=== PATIENT | female | born 1980 ===

== ENCOUNTER 2017-01-17 19:57 | Emergency (ER) | payer SELFPAY ==
[2017-01-17 19:58] VITALS: BMI 25.2
[2017-01-17 20:39] VITALS: BP 126/92; PULSE 84; RESP 16; TEMP 99.3; O2SAT 99
--- NOTE | 2017-01-17 21:08 | ED PDOC ---
HPI: Chest Pain Time Seen by Provider: 01/17/17 20:58 Chief Complaint (Nursing): Chest Pain Chief Complaint (Provider): chest pain History Per: Patient History/Exam Limitations: no limitations Onset/Duration Of Symptoms: Days (1), Waxing/Waning Current Symptoms Are (Timing): Still Present Quality: Pressure, "Pain" Exacerbating Factors: Movement, Deep Breathing Additional History Per: Patient Additional Complaint(s): 36 y/o female history of diabetes presents with intermittent chest pain x 1 day. Pain worsened by deep breaths, lifting left arm, and to touch. Denies fever, nausea/vomiting, cough, congestion, shortness of breath, palpitations, abdominal pain, leg pain/swelling, recent travel. Past Medical History Reviewed: Historical Data, Nursing Documentation, Vital Signs Vital Signs: Last Vital Signs Temp 99.3 F 01/17/17 20:34 Pulse 84 01/17/17 20:34 Resp 16 01/17/17 20:34 BP 126/92 H 01/17/17 20:34 Pulse Ox 99 01/17/17 23:23 - Medical History PMH: Diabetes - Surgical History Surgical History: Appendectomy - Family History Family History: States: Unknown Family Hx, Diabetes - Immunization History Hx Influenza Vaccination: No - Home Medications Home Medications: Ambulatory Orders Medication Instructions Recorded Metformin Hydrochloride [Metformin] 850 mg PO BID 03/13/15 Glimepiride [amaRYL] 1 tab PO DAILY 03/27/16 Ibuprofen 600 mg PO Q6H PRN #20 tab 03/27/16 Cephalexin [Keflex] 500 mg PO Q6 #28 cap 05/04/16 Sulfamethoxazole/Trimethoprim 2 each PO BID #28 tablet 05/04/16 [Bactrim 400-80 mg Tablet] Naproxen 375 mg PO Q8 PRN #21 tab 05/06/16 oxyCODONE/Acetaminophen [Percocet 1 ea PO Q6 PRN #5 tab 05/06/16 5/325 mg Tab] Ibuprofen [Motrin] 600 mg PO Q6 PRN #15 tab 06/30/16 traMADol [Ultram] 50 mg PO TID PRN #15 tab 06/30/16 Cyclobenzaprine [Cyclobenzaprine 10 mg PO Q8 PRN #12 tab 08/15/16 HCl] Ibuprofen [Motrin] 600 mg PO TID PRN #30 tab 08/15/16 traMADol [Ultram] 50 mg PO Q8 PRN #12 tab 08/15/16 - Allergies Allergies/Adverse Reactions: Allergies Allergy/AdvReac Type Severity Reaction Status Date / Time No Known Allergies Allergy Verified 01/17/17 20:34 SANDIP Risk Score for UA/NSTEMI - SANDIP Risk Score Age > 64: NO 3 or more CAD Risk Factors: NO Known CAD (Stenosis greater than 50%): NO Aspirin use in past 7 days: NO Severe Angina: NO EKG ST changes greater than 0.5mm: NO Positive Cardiac Marker: NO SANDIP Score: 0 Risk %: 5% Wells Criteria for PE - Wells Criteria for Pulmonary Embolism Clinical Signs and Symptoms of DVT: No P.E is #1 Diagnosis, or Equally Likely: No Heart Rate >100: No Immobilization at least 3 days;Surgery previous 4 weeks: No Previous, objectively diagnosed PE or DVT: No Hemoptysis: No Malignancy w/treatment within 6 months, or palliative: No Total Score: 0 Review of Systems ROS Statement: Except As Marked, All Systems Reviewed And Found Negative Cardiovascular: Positive for: Chest Pain Physical Exam - Reviewed Nursing Documentation Reviewed: Yes Vital Signs Reviewed: Yes - Physical Exam Appears: Positive for: Well, Non-toxic, No Acute Distress Head Exam: Positive for: ATRAUMATIC, NORMAL INSPECTION, NORMOCEPHALIC Skin: Positive for: Normal Color Eye Exam: Positive for: Normal appearance ENT: Positive for: Normal ENT Inspection Cardiovascular/Chest: Positive for: Regular Rate, Rhythm. Negative for: Chest Non Tender (tender to palpate left anterior chest wall; no crepitus, swelling, ecchymodid noted. tenderness reproduced upon abduction left upper extremity) Respiratory: Positive for: Normal Breath Sounds Back: Positive for: Normal Inspection Extremity: Positive for: Normal ROM Neurologic/Psych: Positive for: Alert, Oriented - Laboratory Results Result Diagrams: 01/17/17 22:43 01/17/17 22:43 - ECG ECG: Positive for: Viewed By Me (reviewed by ED attending) ECG Rhythm: Positive for: Sinus Rhythm O2 Sat by Pulse Oximetry: 99 Pulse Ox Interpretation: Normal - Radiology X-Ray: Viewed By Me X-Ray Interpretation: No Acute Disease - Progress ED Course And Treament: labs, ekg, chest xray, IV toradol, IV fluids On re-eval, patient states symptoms improved. patient educated on findings, discharged with instructions to follow up PMD 2-3 days. Return to ED for worsening/concerning symptoms. Disposition - Clinical Impression Clinical Impression: Chest pain - Patient ED Disposition Is Patient to be Admitted: No Counseled Patient/Family Regarding: Studies Performed, Diagnosis, Need For Followup - Disposition Referrals: Miriam Martinez MD [Primary Care Provider] - Disposition: Routine/Home Disposition Time: 23:29 Condition: IMPROVED Instructions: Noncardiac Chest Pain (ED) Print Language: SAO TOMEAN
[2017-01-17] MEDS ORDERED: Sodium Chloride 0.9% 1,000 ML IV STA (22:30)
[2017-01-17 22:48] LABS: BASO % 0.5 % (0.0-2.0); EOS % 0.6 % (0.0-4.0); LYMPH # 2.3 K/uL (1.0-4.3); LYMPH % 32.8 % (20.0-40.0); MEAN CELL VOLUME 82.8 fl (81.0-99.0); MEAN CORPUSCULAR HEMOGLOBIN 27.6 pg (27.0-31.0); MEAN CORPUSCULAR HGB CONC 33.3 g/dL (33.0-37.0); MEAN PLATELET VOLUME 10.1 fl (7.2-11.7); MONO # 0.5 K/uL (0.0-0.8); MONO % 7.9 % (0.0-10.0); NEUT % 58.2 % (50.0-75.0); RED CELL DISTRIBUTION WIDTH 15.1 % (11.5-14.5); WHITE BLOOD COUNT 6.9 K/uL (4.8-10.8)
[2017-01-17 22:59] LABS: ALB/GLOB RATIO 1.3 (1.0-2.1); ALKALINE PHOSPHATASE 93 U/L (38-126); ALT/SGPT 21 U/L (9-52); AST/SGOT 22 U/L (14-36); BILIRUBIN,TOTAL 0.4 mg/dl (0.2-1.3); BLOOD UREA NITROGEN 15 mg/dl (7-17); CARBON DIOXIDE 25 mmol/L (22-30); CHLORIDE 99 mmol/L (98-107); GFR AFRICAN-AMERICAN > 60; GLUCOSE,RANDOM 310 mg/dL (65-105); POTASSIUM 3.8 MMOL/L (3.6-5.0); SODIUM 139 mmol/l (132-148); TOTAL PROTEIN 7.3 G/DL (6.3-8.2)
[2017-01-18] MEDS ORDERED: Dextrose 50% SYRINGE Inj (50 ml) ONE (01:40)
--- NOTE | 2017-01-18 10:26 | RAD ---
HISTORY: chest pain COMPARISON: 10/17/2016. TECHNIQUE: Chest PA and lateral FINDINGS: LUNGS: No active pulmonary disease. PLEURA: No significant pleural effusion identified. No pneumothorax apparent. CARDIOVASCULAR: Normal. OSSEOUS STRUCTURES: No significant abnormalities. VISUALIZED UPPER ABDOMEN: Normal. OTHER FINDINGS: None. IMPRESSION: No active disease. No significant interval change compared to the prior examination(s).
== END 2017-01-17 23:29 | disposition home or self-care (01) ==
LOC: H.ER 19:57
DX: R07.9 Chest pain, unspecified (principal); E11.9 Type 2 diabetes mellitus without complications
CPT/HCPCS: 71020; 80053; 81025; 82948; 84484; 85025; 96360; 99282; J1885; J7040

== ENCOUNTER 2017-03-09 17:10 | Observation (INO) | payer MEDICAID ==
[2017-03-09] MEDS ORDERED: Sodium Chloride 0.9% 1,000 ML IV STA (22:32)
--- NOTE | 2017-03-09 23:01 | ED PDOC ---
HPI: Abdomen <KayceeSachin Abilio - Last Filed: 03/10/17 04:14> Chief Complaint (Provider): Abdominal Pain History Per: Patient History/Exam Limitations: no limitations Onset/Duration Of Symptoms: Days (X1) Current Symptoms Are (Timing): Still Present Location Of Pain/Discomfort: Periumbilical (Diffused tenderness) Associated Symptoms: Nausea, Vomiting. denies: Fever, Diarrhea Additional History Per: Patient <Denilson Winters Y - Last Filed: 03/13/17 14:16> Time Seen by Provider: 03/09/17 17:45 Chief Complaint (Nursing): Abdominal Pain Additional Complaint(s): Kristie Wan is a 36 year old female with a past medical history of asthma and diabetes and a past surgical history of an appendectomy who presents to the ED with a chief complaint of abdominal pain onset x1day. Associated symptoms include vomiting and nausea but denies any fever or diarrhea. Patient states that the pain worsened a few hours ago. (Denilson Winters Y) Past Medical History <KayceeSachin Knox - Last Filed: 03/10/17 04:14> Reviewed: Historical Data, Nursing Documentation, Vital Signs - Medical History PMH: Asthma, Diabetes - Surgical History Surgical History: Appendectomy - Family History Family History: States: Unknown Family Hx, Diabetes - Social History Current smoker - smoking cessation education provided: No Ex-Smoker (has not smoked in the last 12 months): No Alcohol: None Drugs: Denies - Immunization History Hx Influenza Vaccination: No <Denilson Winters - Last Filed: 03/13/17 14:16> Vital Signs: Last Vital Signs Temp 98.6 F 03/11/17 16:01 Pulse 70 03/11/17 16:01 Resp 20 03/11/17 16:01 BP 109/72 03/11/17 16:01 Pulse Ox 99 03/11/17 16:01 - Home Medications Home Medications: Ambulatory Orders Medication Instructions Recorded Metformin Hydrochloride [Metformin] 850 mg PO BID 03/13/15 Multivitamin [Multivitamins] 1 cap PO DAILY 03/10/17 Famotidine [Pepcid] 20 mg PO BID #30 tab 03/11/17 Ondansetron HCl [Zofran] 4 mg PO Q6 PRN #15 03/11/17 - Allergies Allergies/Adverse Reactions: Allergies Allergy/AdvReac Type Severity Reaction Status Date / Time No Known Allergies Allergy Verified 01/17/17 20:34 Review of Systems ROS Statement: Except As Marked, All Systems Reviewed And Found Negative Constitutional: Negative for: Fever Gastrointestinal: Positive for: Nausea, Vomiting, Abdominal Pain. Negative for : Diarrhea <Denilson Winters - Last Filed: 03/13/17 14:16> Physical Exam - Reviewed Nursing Documentation Reviewed: Yes Vital Signs Reviewed: Yes - Physical Exam Appears: Positive for: Well, No Acute Distress Head Exam: Positive for: ATRAUMATIC, NORMAL INSPECTION, NORMOCEPHALIC Skin: Positive for: Normal Color, Warm, Dry Eye Exam: Positive for: Normal appearance, EOMI, PERRL ENT: Positive for: Normal ENT Inspection Neck: Positive for: Normal, Painless ROM, Supple Cardiovascular/Chest: Positive for: Regular Rate, Rhythm, Chest Non Tender. Negative for: Murmur, Tachycardia Respiratory: Positive for: Normal Breath Sounds. Negative for: Wheezing, Respiratory Distress Gastrointestinal/Abdominal: Positive for: Normal Exam, Soft. Negative for: Tenderness Back: Positive for: Normal Inspection Rectal: Positive for: Deferred Extremity: Positive for: Normal ROM Lymphatic: Positive for: Deferred Neurologic/Psych: Positive for: Alert, Oriented <Denilson Winters Y - Last Filed: 03/13/17 14:16> - Laboratory Results Result Diagrams: 03/09/17 23:02 03/09/17 23:02 <Sachin Benoit - Last Filed: 03/10/17 04:14> - Laboratory Results Result Diagrams: 03/11/17 05:30 03/11/17 05:30 <Denilson Winters - Last Filed: 03/13/17 14:16> Medical Decision Making <Sachin Benoit - Last Filed: 03/10/17 04:14> <Denilson Winters - Last Filed: 03/13/17 14:16> Medical Decision Makin: Labs showed significant elevated lipase level. Patient admitted for further treatment as discussed with Miriam Martinez resident hall director. Diagnosis: Acute pancreatitis (Sachin Benoit) 2300: Initial Impression: Abdominal pain ruling out Intra abdominal pathology, Gatroporesis, and UTI Initial Plan: * ABD Pelvis PO & IV Contrast * CMP * Lipase * CBC * Morphine 4mg IV * Sodium Chloride 1000ml * Famotidine 20mg * Ondansetron 4mg * Urine C&S * Urinalysis * Re-Eval Scribe Attestation: Documented by Rosalia Nix acting as a scribe for Denilson Winters MD. Provider Scribe Attestation: All medical record entries made by the~Yamel~were at my direction and personally dictated by me. I have reviewed the chart and agree that the record accurately reflects my personal performance of the history, physical exam, medical decision making, and the department course for this patient. I have also personally directed, reviewed, and agree with the discharge instructions and disposition. (Denilson Winters) Disposition <Sachin Benoit - Last Filed: 03/10/17 04:14> - Patient ED Disposition Is Patient to be Admitted: Transfer of Care - Disposition Disposition: Transfer of Care Disposition Time: 22:00 Patient Signed Over To: Sachin Benoit <Denilson Winters - Last Filed: 03/13/17 14:16> - Clinical Impression Clinical Impression: Acute pancreatitis - Disposition Condition: FAIR
[2017-03-09 23:07] LABS: BASO % 0.3 % (0.0-2.0); EOS # 0.1 K/uL (0.0-0.7); HEMATOCRIT 39.6 % (34.0-47.0); LYMPH # 2.1 K/uL (1.0-4.3); LYMPH % 24.5 % (20.0-40.0); MEAN CORPUSCULAR HEMOGLOBIN 28.1 pg (27.0-31.0); MEAN CORPUSCULAR HGB CONC 33.4 g/dL (33.0-37.0); MONO # 0.7 K/uL (0.0-0.8); MONO % 8.5 % (0.0-10.0); NEUT # 5.7 K/uL (1.8-7.0); NEUT % 65.7 % (50.0-75.0); NRBC % 0.1 % (0.0-0.0); RED CELL DISTRIBUTION WIDTH 15.7 % (11.5-14.5); WHITE BLOOD COUNT 8.8 K/uL (4.8-10.8)
[2017-03-09 23:23] LABS: RBC URINE 2 /hpf (0-3); URINE BACTERIA RARE (<OCC); URINE BILIRUBIN NEGATIVE (NEGATIVE); URINE BLOOD MODERATE (NEGATIVE); URINE COLOR STRAW (YELLOW); URINE GLUCOSE (UA) >=500 mg/dL (Normal); URINE KETONE NEGATIVE (NEGATIVE); URINE LEUKOCYTE ESTERASE NEG Leu/uL (Negative); URINE PROTEIN NEGATIVE (NEGATIVE); URINE UROBILINOGEN 0.2-1.0 mg/dL (0.2-1.0); WBC URINE < 1 /hpf (0-5)
[2017-03-09 23:26] LABS: ALB/GLOB RATIO 1.4 (1.0-2.1); ALKALINE PHOSPHATASE 103 U/L (38-126); ALT/SGPT 33 U/L (9-52); AST/SGOT 24 U/L (14-36); BILIRUBIN,TOTAL 0.3 mg/dl (0.2-1.3); BLOOD UREA NITROGEN 17 mg/dl (7-17); CALCIUM 8.8 mg/dL (8.4-10.2); CARBON DIOXIDE 25 mmol/L (22-30); CHLORIDE 100 mmol/L (98-107); GFR AFRICAN-AMERICAN > 60; GLUCOSE,RANDOM 253 mg/dL (65-105); LIPASE 809 U/L (23-300); POTASSIUM 3.8 MMOL/L (3.6-5.0); SODIUM 135 mmol/l (132-148); TOTAL PROTEIN 7.1 G/DL (6.3-8.2)
[2017-03-09] MEDS ORDERED: Iohexol 240 (50 ml) ONE (23:51)
--- NOTE | 2017-03-10 00:49 | ED PDOC ---
- Laboratory Results Result Diagrams: 03/09/17 23:02 03/09/17 23:02 Medical Decision Making Medical Decision Makin: Patient is being transferred to Dr. Benoit pending CT/Labs. Scribe~Attestation: Documented by Rosalia Nix acting as a~scribe~for Vianey Oreilly MD. ~ Provider~Scribe~Attestation: All medical record entries made by the~Scribe~were at my direction and personally dictated by me. I have reviewed the chart and agree that the record accurately reflects my personal performance of the history, physical exam, medical decision making, and the department course for this patient. I have also personally directed, reviewed, and agree with the discharge instructions and disposition. Disposition - Disposition Referrals: Miriam Martinez MD [Primary Care Provider] -
[2017-03-10] MEDS ORDERED: Iohexol 300 100 ML IJ ONE (02:06)
[2017-03-10] MEDS ORDERED: Sodium Chloride 0.9% 50 ML IV ONE (02:06)
--- NOTE | 2017-03-10 02:17 | ED PDOC ---
- Laboratory Results Result Diagrams: 03/10/17 15:15 03/10/17 12:35 Medical Decision Making Medical Decision Makin: Patient transferred to Dr. Benoit pending CT/Labs Scribe~Attestation: Documented by Rosalia Nix acting as a~scribe~for Sachin Benoit MD. ~ Provider~Scribe~Attestation: All medical record entries made by the~Sharadwere at my direction and personally dictated by me. I have reviewed the chart and agree that the record accurately reflects my personal performance of the history, physical exam, medical decision making, and the department course for this patient. I have also personally directed, reviewed, and agree with the discharge instructions and disposition. Disposition - Clinical Impression Clinical Impression: Acute pancreatitis - POA Present On Arrival: None - Disposition Disposition: Admitted as In-Patient Disposition Time: 04:00 Condition: FAIR
[2017-03-10] MEDS ORDERED: Glucagon Recombinant 1 mg Inj IM PRN (03:50)
[2017-03-10] MEDS ORDERED: Dextrose 50% SYRINGE Inj (50 ml) IV PRN (03:50)
[2017-03-10] MEDS: Sodium Chloride 0.9% 1,000 ML IV SCH ×3 (05:00→17:40)
--- NOTE | 2017-03-10 05:22 | CP.PCM.HP ---
<JuanMiriam - Last Filed: 03/10/17 05:20> History of Present Illness - History of Present Illness History of Present Illness: Pt is a 36 y/o with history of childhood asthma and currently type II diabetes who presented to ED yesterday with complaints of abdominal pain with associated nausea and vomiting, states has not vomited since yesterday afternoon. symptoms has been present for one day, insidious in onset and not precipitated by anything she is aware off. denies any associated fever, chest pain, sob, dizziness, diarrhea, or headaches. Denies drinking alcohol or smoking. PMD- last seen in [facility] 07/2016 by Jyothi Martinez PMHx: asthma, diabetes PSHx: appendectomy Family History- diabetes Allergies: NKDA Social- Denies smoking or drinking or illicit drug use Present on Admission - Present on Admission Any Indicators Present on Admission: Yes History of Uncontrolled Diabetes: Yes Review of Systems - Review of Systems All systems: reviewed and no additional remarkable complaints except Review of Systems: Per HPI Past Patient History - Past Social History Alcohol: None Drugs: Denies - CARDIAC Hx Cardiac Disorders: No - PULMONARY Hx Asthma: Yes - ENDOCRINE/METABOLIC Hx Endocrine Disorders: Yes (DM) - PSYCHIATRIC Hx Substance Use: No - SURGICAL HISTORY Hx Appendectomy: Yes - ANESTHESIA Hx Anesthesia: Yes Hx Anesthesia Reactions: No Meds Allergies/Adverse Reactions: Allergies Allergy/AdvReac Type Severity Reaction Status Date / Time No Known Allergies Allergy Verified 01/17/17 20:34 Physical Exam - Constitutional Appears: Non-toxic, No Acute Distress - Head Exam Head Exam: NORMOCEPHALIC - Eye Exam Eye Exam: Normal appearance - ENT Exam ENT Exam: Mucous Membranes Moist - Neck Exam Neck exam: Positive for: Normal Inspection - Respiratory Exam Respiratory Exam: Clear to Auscultation Bilateral, NORMAL BREATHING PATTERN. absent: Wheezes - Cardiovascular Exam Cardiovascular Exam: REGULAR RHYTHM, +S1, +S2 - GI/Abdominal Exam GI & Abdominal Exam: Normal Bowel Sounds, Soft, Tenderness. absent: Mass, Organomegaly, Rebound Additional comments: Tenderness mainly in Upper Quadrant - Extremities Exam Extremities exam: Negative for: calf tenderness, pedal edema - Neurological Exam Neurological exam: Alert, CN II-XII Intact, Oriented x3 - Skin Skin Exam: Normal Color Results - Vital Signs Recent Vital Signs: Last Vital Signs Temp 97.9 F 03/10/17 04:25 Pulse 68 03/10/17 04:25 Resp 17 03/10/17 04:25 BP 110/62 03/10/17 04:25 Pulse Ox 100 03/10/17 04:50 - Labs Result Diagrams: 03/09/17 23:02 03/09/17 23:02 Assessment & Plan - Assessment and Plan (Free Text) Assessment: 36 y/o with female with uncontrolled type II diabetes non insulin dependent admitted for acute pancreatitis Plan: Acute Pancreatitis- cause unknown pt denies heavy alcohol use Ct scan of abdomen negative for gallstones or any acute findings Most likely etiology metformin vs elevated triglycerides Lipid panel ordered f/u results metformin 850mg held NPO NS @150cc/hr zofran for nausea Toradol 15mg Q6hrs pain 4-7 Morphine 2mg Q6hr pain 8-10 Type II diabetes NonInsulin dependent Last A1C 07/2016- 7.2 home med Metformin 850mg daily held SSI- low dose accucheck f/u A1C diet- NPO DVT prophylaxis- lovenox 40mg SC <Precious Díaz - Last Filed: 03/10/17 07:46> Physical Exam - Additional Findings Additional findings: Attending Physician Statement Attestation statement Case discussed with resident. Chart reviewed. Agree with plan. Results - Vital Signs Recent Vital Signs: Last Vital Signs Temp 97.9 F 03/10/17 04:25 Pulse 68 03/10/17 04:25 Resp 17 03/10/17 04:25 BP 110/62 03/10/17 04:25 Pulse Ox 100 03/10/17 04:50 - Labs Result Diagrams: 03/09/17 23:02 03/09/17 23:02
[2017-03-10] MEDS: Insulin Regular 100 units/ml SC SCH ×4 (06:40→21:40)
--- NOTE | 2017-03-10 10:21 | CT ---
PROCEDURE: CT abdomen pelvis 03/10/2017. HISTORY: abd pain COMPARISON: Comparison made with CT scan chest 03/27/2016 which image the upper abdomen as well as CT scan abdomen pelvis dated 11/20/2014. TECHNIQUE: Contiguous axial images of the abdomen and pelvis performed following oral and intravenous injection of approximately 90 cc Omnipaque 300 contrast material. . No IV contrast given. Coronal and Sagittal reformats generated. The AA This CT exam was performed using one or more of the following dose reduction techniques: Automated exposure control, adjustment of the mA and/or kV according to patient size, and/or use of iterative reconstruction technique. Total exam DLP = 340.42 mGy-cm. FINDINGS: LOWER THORAX: Mild bibasilar atelectasis open Lung bases are otherwise clear without infiltrate effusion or pneumothorax LIVER: Liver exhibits normal size measuring approximately 16 cm in CC dimension. Mild diffuse fatty hepatic infiltration. GALLBLADDER AND BILE DUCTS: Unremarkable. PANCREAS: Unremarkable. No mass. No ductal dilatation. SPLEEN: Unremarkable. No splenomegaly. ADRENALS: Unremarkable. KIDNEYS AND URETERS: Kidneys exhibit symmetric nephrograms. No evidence of nephrolithiasis or hydronephrosis. No obvious renal mass or collection. BLADDER: Urinary bladder is markedly distended. REPRODUCTIVE: Uterus and is anteriorly and superiorly displaced than by markedly distended bladder. In situ Copper-T IUD. . There appears to be small amount of fluid within the endocervical canal APPENDIX: Status post appendectomy BOWEL: Unremarkable. No obstruction. No gross mural thickening. PERITONEUM: Unremarkable. No fluid collection. No free air. Small fat containing umbilical hernia again noted. LYMPH NODES: Unremarkable. No enlarged lymph nodes. VASCULATURE: Unremarkable. No aortic aneurysm. BONES: The visualized lower thoracic and lumbar vertebral body segments are intact without evidence of acute chronic compression fractures. Minor multilevel degenerative spondylosis. OTHER FINDINGS: None. IMPRESSION: Mild fatty hepatic infiltration. Markedly distended urinary bladder nonspecific. In situ Copper-T IUD there appears to be small amount of fluid within the endocervical canal Status post appendectomy.
[2017-03-10] MEDS: Enoxaparin 40 mg Syringe SC SCH (12:12)
[2017-03-10 13:08] LABS: ALB/GLOB RATIO 1.3 (1.0-2.1); ALKALINE PHOSPHATASE 73 U/L (38-126); ALT/SGPT 33 U/L (9-52); AST/SGOT 24 U/L (14-36); BILIRUBIN,TOTAL 0.3 mg/dl (0.2-1.3); BLOOD UREA NITROGEN 12 mg/dl (7-17); CALCIUM 8.1 mg/dL (8.4-10.2); CARBON DIOXIDE 24 mmol/L (22-30); CHLORIDE 106 mmol/L (98-107); CHOLESTEROL 157 mg/dL (0-199); GFR AFRICAN-AMERICAN > 60; GLUCOSE,RANDOM 201 mg/dL (65-105); LIPASE 163 U/L (23-300); POTASSIUM 3.9 MMOL/L (3.6-5.0); SODIUM 137 mmol/l (132-148)
--- NOTE | 2017-03-10 15:00 | CP.PCM.PN ---
<Flaca Stevensth - Last Filed: 03/10/17 17:23> Subjective - Date & Time of Evaluation Date of Evaluation: 03/10/17 Time of Evaluation: 08:45 - Subjective Subjective: Patient was seen and examined at bedside this morning. Patient is feeling better today, but still reporting intermittent right lower abdominal pain. Denies nausea, vomiting, chills or other complains. Objective - Vital Signs/Intake and Output Vital Signs (last 24 hours): Temp Pulse Resp BP Pulse Ox 98.1 F 73 16 102/66 98 03/10/17 09:00 03/10/17 09:00 03/10/17 09:00 03/10/17 09:00 03/10/17 09:00 - Medications Medications: Current Medications Dextrose (Dextrose 50% Inj) 0 ml IV STAT PRN; Protocol PRN Reason: Hyglycemia Protocol Dextrose (Glutose 15) 0 gm PO ONCE PRN; Protocol PRN Reason: Hypoglycemia Protocol Enoxaparin Sodium (Lovenox) 40 mg SC DAILY PAPITO PRN Reason: Protocol Last Admin: 03/10/17 12:12 Dose: 40 mg Glucagon (Glucagen Diagnostic Kit) 0 mg IM STAT PRN; Protocol PRN Reason: Hypoglycemia Protocol Sodium Chloride (Sodium Chloride 0.9%) 1,000 mls @ 150 mls/hr IV .Q6H40M [facility] Last Admin: 03/10/17 11:54 Dose: 150 mls/hr Insulin Human Regular (Humulin R) 0 units SC ACHS PAPITO PRN Reason: Protocol Last Admin: 03/10/17 11:54 Dose: 2 units Ketorolac Tromethamine (Toradol) 15 mg IVP Q6 PRN PRN Reason: Pain, moderate (4-7) Metoclopramide HCl (Reglan) 10 mg IVP Q6 PRN PRN Reason: Nausea/Vomiting Morphine Sulfate (Morphine) 2 mg IVP Q6 PRN PRN Reason: Pain, severe (8-10) Last Admin: 03/10/17 06:20 Dose: 2 mg - Labs Labs: 03/10/17 12:35 - Constitutional Appears: Non-toxic, No Acute Distress - ENT Exam ENT Exam: Mucous Membranes Moist - Respiratory Exam Respiratory Exam: Clear to Ausculation Bilateral, NORMAL BREATHING PATTERN - Cardiovascular Exam Cardiovascular Exam: REGULAR RHYTHM, +S1, +S2 - GI/Abdominal Exam GI & Abdominal Exam: Soft, Tenderness (mild tender to palpation in right lower quadrant, but no rebound tenderness, no rigidity or guarding ), Normal Bowel Sounds - Extremities Exam Extremities Exam: Normal Inspection. absent: Calf Tenderness, Pedal Edema - Neurological Exam Neurological Exam: Alert, Awake, Oriented x3 - Psychiatric Exam Psychiatric exam: Normal Affect, Normal Mood - Skin Skin Exam: Dry, Intact, Normal Color Assessment and Plan - Assessment and Plan (Free Text) Assessment: 36 y/o with female with uncontrolled type II diabetes non insulin dependent admitted for acute pancreatitis. Plan: Acute Pancreatitis- cause unknown -Patient denies heavy alcohol use -Lipid profile WNL -Ct scan of abdomen negative for gallstones or any acute findings. Most likely etiology metformin. Metformin 850 mg held for now. -Advance to liquid diet -c/w NS @80cc/hr -Reglan 10 mg IV Q6 PRN -Toradol 15mg Q6hrs pain 4-7 -Morphine 2mg Q6hr pain 8-10 -Anticipated DC tomorrow Type II diabetes NonInsulin dependent Last A1C 07/2016- 7.2 home med Metformin 850mg daily held SSI- low dose accucheck f/u A1C Diet Liquid diet Advance as tolerated DVT prophylaxis Lovenox 40mg SC daily <Precious Díaz - Last Filed: 03/11/17 08:54> Objective - Vital Signs/Intake and Output Vital Signs (last 24 hours): Temp Pulse Resp BP Pulse Ox 98.5 F 68 18 96/55 L 97 03/11/17 08:32 03/11/17 08:32 03/11/17 08:32 03/11/17 08:32 03/11/17 08:32 - Medications Medications: Current Medications Dextrose (Dextrose 50% Inj) 0 ml IV STAT PRN; Protocol PRN Reason: Hyglycemia Protocol Dextrose (Glutose 15) 0 gm PO ONCE PRN; Protocol PRN Reason: Hypoglycemia Protocol Enoxaparin Sodium (Lovenox) 40 mg SC DAILY [facility] PRN Reason: Protocol Last Admin: 03/10/17 12:12 Dose: 40 mg Glucagon (Glucagen Diagnostic Kit) 0 mg IM STAT PRN; Protocol PRN Reason: Hypoglycemia Protocol Sodium Chloride (Sodium Chloride 0.9%) 1,000 mls @ 80 mls/hr IV .[id number] [facility] Stop: 03/11/17 17:28 Last Admin: 03/11/17 06:17 Dose: 80 mls/hr Insulin Human Regular (Humulin R) 0 units SC ACHS PAPITO PRN Reason: Protocol Last Admin: 03/11/17 07:24 Dose: 1 units Ketorolac Tromethamine (Toradol) 15 mg IVP Q6 PRN PRN Reason: Pain, moderate (4-7) Last Admin: 03/10/17 16:58 Dose: 15 mg Metoclopramide HCl (Reglan) 10 mg IVP Q6 PRN PRN Reason: Nausea/Vomiting Morphine Sulfate (Morphine) 2 mg IVP Q6 PRN PRN Reason: Pain, severe (8-10) Last Admin: 03/10/17 23:57 Dose: 2 mg - Labs Labs: 03/11/17 05:30 03/11/17 05:30 Assessment and Plan - Assessment and Plan (Free Text) Assessment: ATTENDING STATEMENT/ATTESTATION Patient seen and examined. Case discussed with resident. Agree with plan to start cleat liquids po, monitor labs including lipase. Reevaluate in AM 03/11/17.
[2017-03-10 15:36] LABS: BASO % 0.5 % (0.0-2.0); EOS # 0.1 K/uL (0.0-0.7); EOS % 0.9 % (0.0-4.0); HEMATOCRIT 36.6 % (34.0-47.0); LYMPH # 1.7 K/uL (1.0-4.3); LYMPH % 29.7 % (20.0-40.0); MEAN CORPUSCULAR HEMOGLOBIN 28.1 pg (27.0-31.0); MEAN PLATELET VOLUME 10.1 fl (7.2-11.7); MONO # 0.5 K/uL (0.0-0.8); MONO % 9.4 % (0.0-10.0); NEUT # 3.3 K/uL (1.8-7.0); NEUT % 59.5 % (50.0-75.0); RED CELL DISTRIBUTION WIDTH 15.3 % (11.5-14.5); WHITE BLOOD COUNT 5.6 K/uL (4.8-10.8)
[2017-03-11] MEDS: Sodium Chloride 0.9% 1,000 ML IV SCH (06:17)
[2017-03-11] MEDS: Insulin Regular 100 units/ml SC SCH ×2 (07:24→13:10)
--- NOTE | 2017-03-11 07:37 | CP.PCM.DIS ---
<Anneliese Doan - Last Filed: 03/11/17 19:09> Provider - Provider Date of Admission: 03/10/17 03:24 Attending physician: Rena Bowen MD Primary care physician: Miriam Martinez MD Time Spent in preparation of Discharge (in minutes): 30 Diagnosis - Discharge Diagnosis (1) Acute pancreatitis Status: Acute Comment: improved. F/U within 1 week w/ PCP. zofran for nausea/vomiting PRN. pepcid BID (2) Diabetes mellitus Status: Chronic Comment: resume metformin Hospital Course - Lab Results Lab Results: Most Recent Lab Values WBC 5.6 K/uL (4.8-10.8) 03/10/17 15:15 RBC 4.30 Mil/uL (3.80-5.20) 03/10/17 15:15 Hgb 12.1 g/dL (12.0-16.0) 03/10/17 15:15 Hct 36.6 % (34.0-47.0) 03/10/17 15:15 MCV 85.0 fl (81.0-99.0) 03/10/17 15:15 MCH 28.1 pg (27.0-31.0) 03/10/17 15:15 MCHC 33.0 g/dL (33.0-37.0) 03/10/17 15:15 RDW 15.3 % (11.5-14.5) H 03/10/17 15:15 Plt Count 179 K/uL (130-400) 03/10/17 15:15 MPV 10.1 fl (7.2-11.7) 03/10/17 15:15 Neut % (Auto) 59.5 % (50.0-75.0) 03/10/17 15:15 Lymph % (Auto) 29.7 % (20.0-40.0) 03/10/17 15:15 [place] % (Auto) 9.4 % (0.0-10.0) 03/10/17 15:15 Eos % (Auto) 0.9 % (0.0-4.0) 03/10/17 15:15 Baso % (Auto) 0.5 % (0.0-2.0) 03/10/17 15:15 Neut # 3.3 K/uL (1.8-7.0) 03/10/17 15:15 Lymph # 1.7 K/uL (1.0-4.3) 03/10/17 15:15 [place] # 0.5 K/uL (0.0-0.8) 03/10/17 15:15 Eos # 0.1 K/uL (0.0-0.7) 03/10/17 15:15 Baso # 0.0 K/uL (0.0-0.2) 03/10/17 15:15 Sodium 137 mmol/l (132-148) 03/10/17 12:35 Potassium 3.9 MMOL/L (3.6-5.0) 03/10/17 12:35 Chloride 106 mmol/L (98-107) 03/10/17 12:35 Carbon Dioxide 24 mmol/L (22-30) 03/10/17 12:35 Anion Gap 12 (10-20) 03/10/17 12:35 BUN 12 mg/dl (7-17) 03/10/17 12:35 Creatinine 0.4 mg/dL (0.7-1.2) L 03/10/17 12:35 Est GFR ( Amer) > 60 03/10/17 12:35 Est GFR (Non-Af Amer) > 60 03/10/17 12:35 POC Glucose (mg/dL) 242 mg/dL (65-110) H 03/10/17 10:39 Random Glucose 201 mg/dL (65-105) H 03/10/17 12:35 Calcium 8.1 mg/dL (8.4-10.2) L 03/10/17 12:35 Total Bilirubin 0.3 mg/dl (0.2-1.3) 03/10/17 12:35 AST 24 U/L (14-36) 03/10/17 12:35 ALT 33 U/L (9-52) 03/10/17 12:35 Alkaline Phosphatase 73 U/L (38-126) 03/10/17 12:35 Total Protein 6.0 G/DL (6.3-8.2) L 03/10/17 12:35 Albumin 3.4 g/dL (3.5-5.0) L 03/10/17 12:35 Globulin 2.6 gm/dL (2.2-3.9) 03/10/17 12:35 Albumin/Globulin Ratio 1.3 (1.0-2.1) 03/10/17 12:35 Triglycerides 82 mg/DL (0-149) 03/10/17 12:35 Cholesterol 157 mg/dL (0-199) 03/10/17 12:35 LDL Cholesterol Direct 96 mg/dL (0-129) 03/10/17 12:35 HDL Cholesterol 47 MG/DL (30-70) 03/10/17 12:35 Lipase 163 U/L (23-300) 03/10/17 12:35 Urine Color Straw (YELLOW) 03/09/17 23:08 Urine Clarity Clear (Clear) 03/09/17 23:08 Urine pH 6.0 (5.0-8.0) 03/09/17 23:08 Ur Specific [place] 1.023 (1.003-1.030) 03/09/17 23:08 Urine Protein Negative mg/dL (NEGATIVE) 03/09/17 23:08 Urine Glucose (UA) >=500 mg/dL (Normal) 03/09/17 23:08 Urine Ketones Negative mg/dL (NEGATIVE) 03/09/17 23:08 Urine Blood Moderate (NEGATIVE) 03/09/17 23:08 Urine Nitrate Negative (NEGATIVE) 03/09/17 23:08 Urine Bilirubin Negative (NEGATIVE) 03/09/17 23:08 Urine Urobilinogen 0.2-1.0 mg/dL (0.2-1.0) 03/09/17 23:08 Ur Leukocyte Esterase Neg Sil[place]/uL (Negative) 03/09/17 23:08 Urine RBC (Auto) 2 /hpf (0-3) 03/09/17 23:08 Urine Microscopic WBC < 1 /hpf (0-5) 03/09/17 23:08 Ur Squamous Epith Cells < 1 /hpf (0-5) 03/09/17 23:08 Urine Bacteria Rare (<OCC) 03/09/17 23:08 - Hospital Course Hospital Course: 36 y/o with history of type II diabetes who presented to ED with abdominal pain associated nausea and vomiting, lipase elevated in ED, abdomen CT unremarkable, pt was admitted for observation w/ diagnosis of acute pancreatitis. Hospital Course uneventful, treated w/ NPO and IVFs, abdominal pain and vomiting improved , tolerating PO diet at this time, stable to be d/c home w/ F/U by PMD at [facility]. ER precautions given to pt. Labs reviewed, lipase today WNL. Discharge Exam - Head Exam Head Exam: NORMOCEPHALIC - Additional Findings Additional findings: Constitutional Appears: Non-toxic, No Acute Distress - ENT Exam ENT Exam: Mucous Membranes Moist - Respiratory Exam Respiratory Exam: Clear to Ausculation Bilateral, NORMAL BREATHING PATTERN - Cardiovascular Exam Cardiovascular Exam: REGULAR RHYTHM, +S1, +S2 - GI/Abdominal Exam GI & Abdominal Exam: Soft, non Tenderness, Normal Bowel Sounds - Extremities Exam Extremities Exam: Normal Inspection. absent: Calf Tenderness, Pedal Edema - Neurological Exam Neurological Exam: Alert, Awake, Oriented x3 - Psychiatric Exam Psychiatric exam: Normal Affect, Normal Mood Discharge Plan - Discharge Medications Prescriptions: Famotidine [Pepcid] 20 mg PO BID #30 tab Ondansetron HCl [Zofran] 4 mg PO Q6 PRN #15 PRN Reason: Nausea/Vomiting - Follow Up Plan Condition: FAIR Disposition: HOME/ ROUTINE Instructions: Pancreatitis (DC) Additional Instructions: F/U with PMD within 1 week. ER precautions given to pt who verbalized understanding. Referrals: Miriam Martinez MD [Primary Care Provider] - <Precious Díaz - Last Filed: 03/12/17 08:44> Provider - Provider Date of Admission: 03/10/17 03:24 Attending physician: Rena Bowen MD Primary care physician: Miriam Martinez MD Hospital Course - Lab Results Lab Results: Most Recent Lab Values WBC 4.8 K/uL (4.8-10.8) 03/11/17 05:30 RBC 4.17 Mil/uL (3.80-5.20) 03/11/17 05:30 Hgb 11.7 g/dL (12.0-16.0) L 03/11/17 05:30 Hct 35.3 % (34.0-47.0) 03/11/17 05:30 MCV 84.8 fl (81.0-99.0) 03/11/17 05:30 MCH 28.2 pg (27.0-31.0) 03/11/17 05:30 MCHC 33.2 g/dL (33.0-37.0) 03/11/17 05:30 RDW 15.4 % (11.5-14.5) H 03/11/17 05:30 Plt Count 170 K/uL (130-400) 03/11/17 05:30 MPV 10.1 fl (7.2-11.7) 03/10/17 15:15 Neut % (Auto) 59.5 % (50.0-75.0) 03/10/17 15:15 Lymph % (Auto) 29.7 % (20.0-40.0) 03/10/17 15:15 [place] % (Auto) 9.4 % (0.0-10.0) 03/10/17 15:15 Eos % (Auto) 0.9 % (0.0-4.0) 03/10/17 15:15 Baso % (Auto) 0.5 % (0.0-2.0) 03/10/17 15:15 Neut # 3.3 K/uL (1.8-7.0) 03/10/17 15:15 Lymph # 1.7 K/uL (1.0-4.3) 03/10/17 15:15 [place] # 0.5 K/uL (0.0-0.8) 03/10/17 15:15 Eos # 0.1 K/uL (0.0-0.7) 03/10/17 15:15 Baso # 0.0 K/uL (0.0-0.2) 03/10/17 15:15 Sodium 139 mmol/l (132-148) 03/11/17 05:30 Potassium 3.6 MMOL/L (3.6-5.0) 03/11/17 05:30 Chloride 106 mmol/L (98-107) 03/11/17 05:30 Carbon Dioxide 27 mmol/L (22-30) 03/11/17 05:30 Anion Gap 10 (10-20) 03/11/17 05:30 BUN 8 mg/dl (7-17) 03/11/17 05:30 Creatinine 0.5 mg/dL (0.7-1.2) L 03/11/17 05:30 Est GFR ( Amer) > 60 03/11/17 05:30 Est GFR (Non-Af Amer) > 60 03/11/17 05:30 POC Glucose (mg/dL) 242 mg/dL (65-110) H 03/10/17 10:39 Random Glucose 156 mg/dL (65-105) H 03/11/17 05:30 Calcium 8.5 mg/dL (8.4-10.2) 03/11/17 05:30 Total Bilirubin 0.3 mg/dl (0.2-1.3) 03/11/17 05:30 AST 24 U/L (14-36) 03/11/17 05:30 ALT 29 U/L (9-52) 03/11/17 05:30 Alkaline Phosphatase 63 U/L (38-126) 03/11/17 05:30 Total Protein 5.7 G/DL (6.3-8.2) L 03/11/17 05:30 Albumin 3.2 g/dL (3.5-5.0) L 03/11/17 05:30 Globulin 2.5 gm/dL (2.2-3.9) 03/11/17 05:30 Albumin/Globulin Ratio 1.3 (1.0-2.1) 03/11/17 05:30 Triglycerides 82 mg/DL (0-149) 03/10/17 12:35 Cholesterol 157 mg/dL (0-199) 03/10/17 12:35 LDL Cholesterol Direct 96 mg/dL (0-129) 03/10/17 12:35 HDL Cholesterol 47 MG/DL (30-70) 03/10/17 12:35 Lipase 163 U/L (23-300) 03/10/17 12:35 Urine Color Straw (YELLOW) 03/09/17 23:08 Urine Clarity Clear (Clear) 03/09/17 23:08 Urine pH 6.0 (5.0-8.0) 03/09/17 23:08 Ur Specific [place] 1.023 (1.003-1.030) 03/09/17 23:08 Urine Protein Negative mg/dL (NEGATIVE) 03/09/17 23:08 Urine Glucose (UA) >=500 mg/dL (Normal) 03/09/17 23:08 Urine Ketones Negative mg/dL (NEGATIVE) 03/09/17 23:08 Urine Blood Moderate (NEGATIVE) 03/09/17 23:08 Urine Nitrate Negative (NEGATIVE) 03/09/17 23:08 Urine Bilirubin Negative (NEGATIVE) 03/09/17 23:08 Urine Urobilinogen 0.2-1.0 mg/dL (0.2-1.0) 03/09/17 23:08 Ur Leukocyte Esterase Neg [place]/uL (Negative) 03/09/17 23:08 Urine RBC (Auto) 2 /hpf (0-3) 03/09/17 23:08 Urine Microscopic WBC < 1 /hpf (0-5) 03/09/17 23:08 Ur Squamous Epith Cells < 1 /hpf (0-5) 03/09/17 23:08 Urine Bacteria Rare (<OCC) 03/09/17 23:08 - Hospital Course Hospital Course: ATTENDING NOTE/ ATTESTATION PATIENT SEEN AND EXAMINED. PATIENT IMPROVED CLINICALLY TOLERATING PO FLUIDS. LABS ABNORMALITY RESOLVED. AGREE WITH PLAN TO DISCHARGE TO OUTPATIENT FOLLOW UP.
[2017-03-11 08:24] LABS: HEMATOCRIT 35.3 % (34.0-47.0); MEAN CELL VOLUME 84.8 fl (81.0-99.0); MEAN CORPUSCULAR HEMOGLOBIN 28.2 pg (27.0-31.0); MEAN CORPUSCULAR HGB CONC 33.2 g/dL (33.0-37.0); RED CELL DISTRIBUTION WIDTH 15.4 % (11.5-14.5); WHITE BLOOD COUNT 4.8 K/uL (4.8-10.8)
[2017-03-11 08:30] LABS: ALB/GLOB RATIO 1.3 (1.0-2.1); ALKALINE PHOSPHATASE 63 U/L (38-126); ALT/SGPT 29 U/L (9-52); AST/SGOT 24 U/L (14-36); BILIRUBIN,TOTAL 0.3 mg/dl (0.2-1.3); BLOOD UREA NITROGEN 8 mg/dl (7-17); CALCIUM 8.5 mg/dL (8.4-10.2); CARBON DIOXIDE 27 mmol/L (22-30); CHLORIDE 106 mmol/L (98-107); GFR AFRICAN-AMERICAN > 60; GLUCOSE,RANDOM 156 mg/dL (65-105); POTASSIUM 3.6 MMOL/L (3.6-5.0); SODIUM 139 mmol/l (132-148); TOTAL PROTEIN 5.7 G/DL (6.3-8.2)
[2017-03-11] MEDS: Enoxaparin 40 mg Syringe SC SCH (09:17)
[2017-03-11 16:02] VITALS: BP 109/72; PULSE 70; RESP 20; TEMP 98.6; O2SAT 99
== END 2017-03-11 16:40 | disposition home or self-care (01) ==
LOC: H.ER 17:10 → INTOOBSV 03-10 03:24 → H.ERHOLD 03-10 03:24 → H.MEDSURG1 03-10 05:20
PROVIDERS: ADMIT Family Medicine Geriatric Medicine; ATTEND Family Medicine Geriatric Medicine
DX: K85.90 Acute pancreatitis without necrosis or infection, unspecified (principal); N39.0 Urinary tract infection, site not specified; B96.20 Unspecified Escherichia coli [E. coli] as the cause of diseases classified elsewhere; E11.65 Type 2 diabetes mellitus with hyperglycemia; J45.909 Unspecified asthma, uncomplicated
CPT/HCPCS: 36415; 74177; 80053; 80061; 81003; 81025; 82948; 83036; 83690; 85025; 85027; 87086; 87181; 96360; 96361; 96374; 99285; G0378; J1650; J1885; J2270; J2405; J2765; J7040; Q9967

== ENCOUNTER 2017-04-14 00:39 | Emergency (ER) | payer MEDICAID, OTHER ==
[2017-04-14 00:47] VITALS: BMI 21.5
[2017-04-14 01:02] VITALS: PULSE 72; RESP 16; TEMP 99.6; O2SAT 100
[2017-04-14] MEDS ORDERED: Sodium Chloride 0.9% 1,000 ML IV STA (01:17)
--- NOTE | 2017-04-14 02:26 | CT ---
EXAM: CT Head Without Intravenous Contrast CLINICAL HISTORY: 36 years old, female; Pain; Headache; Headache not specified TECHNIQUE: Axial computed tomography images of the head/brain without intravenous contrast. This CT exam was performed using one or more of the following dose reduction techniques: automated exposure control, adjustment of the mA and/or kV according to patient size, and/or use of iterative reconstruction technique. Coronal and sagittal reformatted images were created and reviewed. COMPARISON: CT - HEAD^HEAD ROUTINE (ADULT) 08/29/2011 1:28:23 PM FINDINGS: Brain: No intracranial hemorrhage. No mass. No definite edema. Ventricles: No hydrocephalus. Bones/joints: No acute fracture. Soft tissues: Unremarkable. Sinuses: No acute sinusitis. Mastoid air cells: No mastoid effusion. Orbits: Unremarkable as visualized. IMPRESSION: 1. No acute intracranial abnormality. 2. Incidental/non-acute findings are described above.
--- NOTE | 2017-04-14 03:47 | ED PDOC ---
HPI: Headache Time Seen by Provider: 04/14/17 01:00 Chief Complaint (Nursing): Headache Chief Complaint (Provider): headache History Per: Patient (36 y/o female here for evaluation of gradually worsening frontal headache x 3 days. Denies any vomiting/diarrhea. Denies any h/o migraines. States she has h/o "inflamed vein" in past in head. Took advil yesterday without relief.) Past Medical History Reviewed: Historical Data, Nursing Documentation, Vital Signs Vital Signs: Last Vital Signs Temp 99.6 F 04/14/17 00:59 Pulse 72 04/14/17 00:59 Resp 16 04/14/17 00:59 BP 99/65 L 04/14/17 00:59 Pulse Ox 100 04/14/17 00:59 - Medical History PMH: Asthma, Diabetes Denies: HIV, Chronic Kidney Disease - Surgical History Surgical History: Appendectomy - Family History Family History: States: Unknown Family Hx, Diabetes - Immunization History Hx Influenza Vaccination: No - Home Medications Home Medications: Ambulatory Orders Medication Instructions Recorded Metformin Hydrochloride [Metformin] 850 mg PO BID 03/13/15 Multivitamin [Multivitamins] 1 cap PO DAILY 03/10/17 Famotidine [Pepcid] 20 mg PO BID #30 tab 03/11/17 Ondansetron HCl [Zofran] 4 mg PO Q6 PRN #15 03/11/17 Naproxen [Naprosyn Tab] 375 mg PO Q8 PRN #6 tab 04/14/17 - Allergies Allergies/Adverse Reactions: Allergies Allergy/AdvReac Type Severity Reaction Status Date / Time No Known Allergies Allergy Verified 04/14/17 00:59 Review of Systems ROS Statement: Except As Marked, All Systems Reviewed And Found Negative Physical Exam - Reviewed Nursing Documentation Reviewed: Yes Vital Signs Reviewed: Yes - Physical Exam Appears: Positive for: Well, Non-toxic, No Acute Distress Head Exam: Positive for: ATRAUMATIC, NORMAL INSPECTION, NORMOCEPHALIC Skin: Positive for: Normal Color, Warm, DRY Eye Exam: Positive for: EOMI, Normal appearance, PERRL ENT: Positive for: Normal ENT Inspection Neck: Positive for: Normal, Painless ROM Cardiovascular/Chest: Positive for: Regular Rate, Rhythm Respiratory: Positive for: CNT, Normal Breath Sounds Gastrointestinal/Abdominal: Positive for: Normal Exam, Bowel Sounds, Soft Back: Positive for: Normal Inspection Extremity: Positive for: Normal ROM Neurologic/Psych: Positive for: Alert, Oriented - Laboratory Results Urine POC: Negative - ECG O2 Sat by Pulse Oximetry: 100 - Progress ED Course And Treament: Reglan 10 mg iv x1 dose NS 1 liter wide open HEAD CT: NAD D/W PATIENT. HEADACHE RESOLVED. Disposition - Clinical Impression Clinical Impression: Headache - Patient ED Disposition Is Patient to be Admitted: No - Disposition Disposition: Routine/Home Disposition Time: 03:47 Condition: FAIR Prescriptions: Naproxen [Naprosyn Tab] 375 mg PO Q8 PRN #6 tab PRN Reason: Pain, Moderate (4-7) Instructions: Acute Headache (ED) Forms: [facility] ED School/Work Excuse Print Language: SWAZI
[2017-04-14 04:08] VITALS: BP 105/59
== END 2017-04-14 04:08 | disposition home or self-care (01) ==
LOC: H.ER 00:39
DX: R51 Headache (principal); E11.9 Type 2 diabetes mellitus without complications

== ENCOUNTER 2017-05-04 00:13 | Emergency (ER) | payer OTHER ==
[2017-05-04 00:14] VITALS: BMI 21.5
[2017-05-04 00:33] VITALS: BP 107/64; PULSE 74; RESP 18; TEMP 98.9; O2SAT 100
[2017-05-04 01:05] LABS: BASO % 0.4 % (0.0-2.0); EOS # 0.1 K/uL (0.0-0.7); EOS % 0.9 % (0.0-4.0); HEMOGLOBIN 12.7 g/dL (12.0-16.0); LYMPH % 22.2 % (20.0-40.0); MEAN CELL VOLUME 85.1 fl (81.0-99.0); MEAN CORPUSCULAR HEMOGLOBIN 28.9 pg (27.0-31.0); MEAN CORPUSCULAR HGB CONC 33.9 g/dL (33.0-37.0); MEAN PLATELET VOLUME 10.2 fl (7.2-11.7); MONO # 0.8 K/uL (0.0-0.8); MONO % 9.3 % (0.0-10.0); NEUT # 6.1 K/uL (1.8-7.0); NEUT % 67.2 % (50.0-75.0); NRBC % 0.1 % (0.0-0.0); RBC 4.39 Mil/uL (3.80-5.20); RED CELL DISTRIBUTION WIDTH 15.1 % (11.5-14.5)
[2017-05-04 01:13] LABS: ALB/GLOB RATIO 1.4 (1.0-2.1); ALBUMIN 4.5 g/dL (3.5-5.0); ALT/SGPT 36 U/L (9-52); AST/SGOT 25 U/L (14-36); BILIRUBIN,DIRECT 0.2 mg/ml (0.0-0.4); BLOOD UREA NITROGEN 13 mg/dl (7-17); CALCIUM 9.2 mg/dL (8.4-10.2); GFR AFRICAN-AMERICAN > 60; GFR NON-AFRICAN AMERICAN > 60; LIPASE 145 U/L (23-300)
[2017-05-04 01:57] LABS: PROTHROMBIN TIME 11.5 Seconds (9.8-13.1)
--- NOTE | 2017-05-04 02:18 | ED PDOC ---
HPI: Chest Pain Time Seen by Provider: 05/04/17 00:30 Chief Complaint (Nursing): Chest Pain Chief Complaint (Provider): Chest Pain History Per: Patient History/Exam Limitations: no limitations Onset/Duration Of Symptoms: Hrs (x1) Current Symptoms Are (Timing): Still Present Quality: "Pain" Associated Symptoms: Dyspnea Additional Complaint(s): 37 year old female presents to ED with complaints of chest pain x1 hour [employer] and has a past medical history of NIDDM. States that at onset, she was at rest. (+) SOB and pain/numbness to her left arm. (-) cough, fever, or chills. Patient confirms that she has had stress at home. PCP: MAXIMO Past Medical History Reviewed: Historical Data, Nursing Documentation, Vital Signs Vital Signs: Last Vital Signs Temp 98.9 F 05/04/17 00:29 Pulse 74 05/04/17 00:29 Resp 18 05/04/17 00:29 BP 107/64 05/04/17 00:29 Pulse Ox 100 05/04/17 00:29 - Medical History PMH: Asthma, Diabetes (NIDDM) Denies: HIV, Chronic Kidney Disease - Surgical History Surgical History: Appendectomy - Family History Family History: States: Diabetes - Social History Current smoker - smoking cessation education provided: No Ex-Smoker (has not smoked in the last 12 months): No Alcohol: None Drugs: Denies - Immunization History Hx Influenza Vaccination: No - Home Medications Home Medications: Ambulatory Orders Medication Instructions Recorded Ibuprofen [Motrin Tab] 600 mg PO Q6 #30 tab 05/04/17 - Allergies Allergies/Adverse Reactions: Allergies Allergy/AdvReac Type Severity Reaction Status Date / Time No Known Allergies Allergy Verified 04/14/17 00:59 SANDIP Risk Score for UA/NSTEMI - SANDIP Risk Score Age > 64: NO SANDIP Score: 0 Risk %: 5% Curb-65 Severity Score - CURB-65 Severity Score Confusion: No Respiratory Rate greater than/equal to 30: No Systolic BP <90 or Diastolic BP less than/equal 60mmHg: No Age >64: No Curb-65 Score: 0 Percentage 30-day mortality: 0.6% Wells Criteria for PE - Wells Criteria for Pulmonary Embolism Clinical Signs and Symptoms of DVT: No P.E is #1 Diagnosis, or Equally Likely: No Heart Rate >100: No Immobilization at least 3 days;Surgery previous 4 weeks: No Hemoptysis: No Total Score: 0 Review of Systems ROS Statement: Except As Marked, All Systems Reviewed And Found Negative Constitutional: Negative for: Fever, Chills Cardiovascular: Positive for: Chest Pain Respiratory: Positive for: Shortness of Breath. Negative for: Cough Musculoskeletal: Positive for: Arm Pain (left arm) Neurological: Positive for: Numbness (to left arm) Physical Exam - Reviewed Nursing Documentation Reviewed: Yes Vital Signs Reviewed: Yes - Physical Exam Appears: Positive for: Non-toxic, No Acute Distress Head Exam: Positive for: ATRAUMATIC Skin: Positive for: Normal Color, Warm, Dry Eye Exam: Positive for: Normal appearance, EOMI, PERRL ENT: Positive for: Normal ENT Inspection Neck: Positive for: Normal, Painless ROM, Supple Cardiovascular/Chest: Positive for: Regular Rate, Rhythm. Negative for: Murmur Respiratory: Positive for: Normal Breath Sounds. Negative for: Respiratory Distress Gastrointestinal/Abdominal: Positive for: Normal Exam, Soft. Negative for: Tenderness Back: Positive for: Normal Inspection Extremity: Positive for: Normal ROM. Negative for: Deformity Neurologic/Psych: Positive for: Alert, Oriented. Negative for: Motor/Sensory Deficits - Laboratory Results Result Diagrams: 05/04/17 00:55 05/04/17 00:55 - ECG O2 Sat by Pulse Oximetry: 100 (RA) Pulse Ox Interpretation: Normal Medical Decision Making Medical Decision Makin Initial impression: unspecified chest pain Initial plan: * EKG * Labs * Lipase * LFT * Trop I * PTT/PT * CXR * Toradol 15mg IVP * Re-eval 0200 Upon re-evaluation, patient is feeling much better and is no longer complaining of pain. Patient is medically stable and ready for discharge. Counseling has been provided and patient is in agreement. She will follow up with the clinic in 2 days. Return if symptoms persist or acutely worsen. Scribe Attestation: Documented by Jyoti Rand acting as a scribe for Inderjit De Paz MD. Scribe Attestation: All medical record entries made by the Scribe were at my direction and personally dictated by me. I have reviewed the chart and agree that the record accurately reflects my personal performance of the history, physical exam, medical decision making, and the department course for this patient. I have also personally directed, reviewed, and agree with the discharge instructions and disposition. Disposition - Clinical Impression Clinical Impression: Atypical chest pain - Disposition Referrals: [facility] [Outside] Disposition: Routine/Home Disposition Time: 02:00 Condition: STABLE Prescriptions: Ibuprofen [Motrin Tab] 600 mg PO Q6 #30 tab Instructions: Noncardiac Chest Pain (ED)
--- NOTE | 2017-05-04 08:06 | CARD ---
APPROVED REPORT EKG Measurement Heart [id number] <Conclusion> Normal sinus rhythm Normal ECG
--- NOTE | 2017-05-04 10:09 | RAD ---
HISTORY: SOB, CP COMPARISON: 01/17/2017. TECHNIQUE: Chest PA and lateral FINDINGS: LUNGS: The lungs are well inflated and clear. PLEURA: No significant pleural effusion identified. No pneumothorax apparent. CARDIOVASCULAR: Normal. OSSEOUS STRUCTURES: No significant abnormalities. VISUALIZED UPPER ABDOMEN: Normal. OTHER FINDINGS: None. IMPRESSION: No active pulmonary disease.
== END 2017-05-04 02:24 | disposition home or self-care (01) ==
LOC: H.ER 00:13
DX: R07.89 Other chest pain (principal); E11.9 Type 2 diabetes mellitus without complications; J45.909 Unspecified asthma, uncomplicated

== ENCOUNTER 2017-07-19 19:42 | Emergency (ER) | payer OTHER ==
[2017-07-19 19:42] VITALS: BMI 21.5
[2017-07-19 20:28] VITALS: BP 114/71; PULSE 84; RESP 18; TEMP 99.2; O2SAT 100
--- NOTE | 2017-07-19 20:40 | ED PDOC ---
HPI: CCC, URI, Sore Throat Time Seen by Provider: 07/19/17 20:31 Chief Complaint (Nursing): ENT Problem Chief Complaint (Provider): Left ear pain History Per: Patient History/Exam Limitations: no limitations Onset/Duration Of Symptoms: Days (2) Additional Complaint(s): Patient is a 37 y/o female with a past medical history of diabetes presenting to the emergency department for left ear pain x2 days with associated headache and mild sore throat. Denies water exposure to ear, sinus pain, nasal congestion , fever, chills, or other complaints. PCP: none provided Past Medical History Reviewed: Historical Data, Nursing Documentation, Vital Signs Vital Signs: Last Vital Signs Temp 99.2 F 07/19/17 20:25 Pulse 84 07/19/17 20:25 Resp 18 07/19/17 20:25 BP 114/71 07/19/17 20:25 Pulse Ox 100 07/19/17 20:54 - Medical History PMH: Asthma, Diabetes (NIDDM) Denies: HIV, Chronic Kidney Disease - Surgical History Surgical History: Appendectomy - Family History Family History: States: Unknown Family Hx, Diabetes - Social History Current smoker - smoking cessation education provided: No Ex-Smoker (has not smoked in the last 12 months): No Alcohol: None Drugs: Denies - Immunization History Hx Influenza Vaccination: No - Home Medications Home Medications: Ambulatory Orders Medication Instructions Recorded Ibuprofen [Motrin Tab] 600 mg PO Q6 #30 tab 05/04/17 Amoxicillin [Amoxil 500 mg Cap] 500 mg PO BID #20 cap 07/19/17 - Allergies Allergies/Adverse Reactions: Allergies Allergy/AdvReac Type Severity Reaction Status Date / Time No Known Allergies Allergy Verified 04/14/17 00:59 Review of Systems ROS Statement: Except As Marked, All Systems Reviewed And Found Negative Constitutional: Negative for: Fever, Chills ENT: Positive for: Ear Pain (left), Throat Pain (sore throat). Negative for: Other (sinus) Neurological: Positive for: Headache Physical Exam - Reviewed Nursing Documentation Reviewed: Yes Vital Signs Reviewed: Yes - Physical Exam Appears: Positive for: Well, Non-toxic, No Acute Distress Head Exam: Positive for: ATRAUMATIC, NORMAL INSPECTION, NORMOCEPHALIC Skin: Positive for: Normal Color, Warm, Dry Eye Exam: Positive for: Normal appearance ENT: Positive for: TM Is/Are (erythematous with swelling behind eardrums), Other (tenderness to left pinna and tragus with normal ear canal and no drainage ) Neck: Positive for: Normal Cardiovascular/Chest: Positive for: Regular Rate, Rhythm Respiratory: Negative for: Accessory Muscle Use, Respiratory Distress Extremity: Positive for: Normal ROM Neurologic/Psych: Positive for: Alert, Oriented (x3) - ECG O2 Sat by Pulse Oximetry: 100 (RA) Pulse Ox Interpretation: Normal Medical Decision Making Medical Decision Makin:30 Initial impression: ear infection Initial plan: -Antibiotic treatment 20:40 Upon provider reevaluation patient is medically stable and requires no further treatment in the ED at this time. Patient will be discharged with Rx for Amoxicillin. Counseling was provided and all questions were answered regarding diagnosis and need for follow up with referred clinic. There is agreement to discharge plan. Return if symptoms persist or worsen. Clinical Impression: Otitis media ~ Scribe Attestation: Documented by Loyda Vergara, acting as a scribe for TJ Hartman. Provider Scribe Attestation: All medical record entries made by the Scribe were at my direction and personally dictated by me. I have reviewed the chart and agree that the record accurately reflects my personal performance of the history, physical exam, medical decision making, and the department course for this patient. I have also personally directed, reviewed, and agree with the discharge instructions and disposition. Disposition - Clinical Impression Clinical Impression: Otitis media - Patient ED Disposition Is Patient to be Admitted: No Doctor Will See Patient In The: Office Counseled Patient/Family Regarding: Diagnosis, Rx Given - Disposition Referrals: [facility] [Outside] Disposition: Routine/Home Disposition Time: 20:40 Condition: STABLE Prescriptions: Amoxicillin [Amoxil 500 mg Cap] 500 mg PO BID #20 cap Instructions: Otitis Media (ED) Forms: [employer] (Montenegrin), [facility] (Irish) Print Language: ARGENT[place]
== END 2017-07-19 20:57 | disposition home or self-care (01) ==
LOC: H.ER 19:42
DX: H66.92 Otitis media, unspecified, left ear (principal)

== ENCOUNTER 2017-07-29 23:24 | Emergency (ER) | payer OTHER, SELFPAY ==
[2017-07-29 23:24] VITALS: BMI 21.5
[2017-07-30 00:16] VITALS: BP 113/73; PULSE 79; RESP 16; TEMP 98.5; O2SAT 100
--- NOTE | 2017-07-30 00:24 | ED PDOC ---
HPI: Female Pain Time Seen by Provider: 07/29/17 23:31 Chief Complaint (Nursing): Male Genitourinary Past Medical History Vital Signs: Last Vital Signs Temp 98.5 F 07/30/17 00:14 Pulse 79 07/30/17 00:14 Resp 16 07/30/17 00:14 BP 113/73 07/30/17 00:14 Pulse Ox 100 07/30/17 00:14 - Medical History PMH: Asthma, Diabetes (NIDDM) Denies: HIV, Chronic Kidney Disease - Surgical History Surgical History: Appendectomy - Family History Family History: States: Unknown Family Hx, Diabetes - Immunization History Hx Influenza Vaccination: No - Home Medications Home Medications: Ambulatory Orders Medication Instructions Recorded Ibuprofen [Motrin Tab] 600 mg PO Q6 #30 tab 05/04/17 Amoxicillin [Amoxil 500 mg Cap] 500 mg PO BID #20 cap 07/19/17 Ciprofloxacin [Cipro] 500 mg PO BID #10 tab 07/30/17 - Allergies Allergies/Adverse Reactions: Allergies Allergy/AdvReac Type Severity Reaction Status Date / Time No Known Allergies Allergy Verified 04/14/17 00:59 - ECG O2 Sat by Pulse Oximetry: 100 Disposition - Clinical Impression Clinical Impression: Urinary tract infection - Patient ED Disposition Is Patient to be Admitted: No Counseled Patient/Family Regarding: Diagnosis, Need For Followup, Rx Given - Disposition Disposition: Routine/Home Disposition Time: 00:22 Condition: GOOD Prescriptions: Ciprofloxacin [Cipro] 500 mg PO BID #10 tab Instructions: Urinary Tract Infection in Women (ED) Print Language: BENGALI
== END 2017-07-30 02:14 | disposition home or self-care (01) ==
LOC: H.ER 23:24
DX: N39.0 Urinary tract infection, site not specified (principal)

== ENCOUNTER 2017-10-08 21:00 | Emergency (ER) | payer SELFPAY ==
[2017-10-08 21:04] VITALS: BMI 22.6
[2017-10-08 21:09] VITALS: RESP 16; O2SAT 100
--- NOTE | 2017-10-08 21:27 | ED PDOC ---
HPI: Abdomen Time Seen by Provider: 10/08/17 21:14 Chief Complaint (Nursing): Abdominal Pain Chief Complaint (Provider): Abdominal pain History Per: Patient Additional Complaint(s): Patient is a 37 yo female,PMH of Asthma and DM, presents to ED for evaluation of 2 days of post-coital pain. Patient is concerned that her IUD has moved. Denies nausea, vomiting, diarrhea, fever. Denies dysuria. also c/o occasional spotting. Pt has not taken anything for pain thus far Past Medical History Reviewed: Nursing Documentation, Vital Signs Vital Signs: Last Vital Signs Temp 97.8 F 10/08/17 21:04 Pulse 96 H 10/08/17 21:04 Resp 16 10/08/17 21:04 BP 121/74 10/08/17 21:04 Pulse Ox 100 10/09/17 02:30 - Medical History PMH: Asthma, Diabetes (NIDDM) Denies: HIV, Chronic Kidney Disease - Surgical History Surgical History: Appendectomy - Family History Family History: States: Unknown Family Hx, Diabetes - Living Arrangements Living Arrangements: With Family - Social History Current smoker - smoking cessation education provided: No Alcohol: None Drugs: Denies - Immunization History Hx Influenza Vaccination: No - Home Medications Home Medications: Ambulatory Orders Medication Instructions Recorded Ibuprofen [Motrin] 600 mg PO Q6 #20 tab 10/08/17 MetFORMIN [glucoPHAGE] 800 mg PO BID 10/08/17 Ciprofloxacin [Cipro] 500 mg PO BID #6 tab 10/09/17 Metronidazole [Flagyl] 500 mg PO BID #14 tab 10/09/17 - Allergies Allergies/Adverse Reactions: Allergies Allergy/AdvReac Type Severity Reaction Status Date / Time No Known Allergies Allergy Verified 10/08/17 21:04 Review of Systems ROS Statement: Except As Marked, All Systems Reviewed And Found Negative Gastrointestinal: Positive for: Abdominal Pain Genitourinary Female: Positive for: Vaginal Bleeding Physical Exam - Reviewed Nursing Documentation Reviewed: Yes Vital Signs Reviewed: Yes - Physical Exam Appears: Positive for: Well, Non-toxic, No Acute Distress Head Exam: Positive for: ATRAUMATIC, NORMAL INSPECTION, NORMOCEPHALIC Skin: Positive for: Normal Color, Warm, DRY Eye Exam: Positive for: EOMI, Normal appearance, PERRL ENT: Positive for: Normal ENT Inspection Neck: Positive for: Normal, Painless ROM Cardiovascular/Chest: Positive for: Regular Rate, Rhythm Respiratory: Positive for: CNT, Normal Breath Sounds Gastrointestinal/Abdominal: Positive for: Normal Exam, Bowel Sounds, Soft Back: Positive for: Normal Inspection Extremity: Positive for: Normal ROM Neurologic/Psych: Positive for: Alert, Oriented - Laboratory Results Result Diagrams: 10/08/17 21:41 10/08/17 21:41 - ECG O2 Sat by Pulse Oximetry: 100 Medical Decision Making Medical Decision Making: IV access established and diagnostics ordered. treatment initiated with Toradol IMPRESSION: No acute pelvic abnormality. No evidence of ovarian torsion. Incidental endometrial cavity echogenic focus. Diagnostic considerations include endometrial polyp. Clinical correlation and followup recommended. Further evaluation with hysterosonography may be considered. On re-eval, Pt still reports umbilical pain. Pt medicated with 2 mg Morphine and Bentyl PO. CT scan ordered Pt educated on interactions between contrast and Metformin. Advised to hold for [address] IMPRESSION: Appendectomy. Inflammatory stranding of the mesenteric fat in the right lower abdomen and pelvis with somewhat thick walled adjacent small bowel loops. Findings suggest an infectious/ inflammatory process. Acute enteritis is not excluded. Clinical correlation and followup recommended. Possible involuting cyst in the right ovary. Further evaluation with pelvic ultrasound could be obtained if clinically indicated. Disposition - Clinical Impression Clinical Impression: Pelvic pain, Ovarian cyst, Enteritis - Patient ED Disposition Is Patient to be Admitted: No - Disposition [facility] Disposition: Routine/Home Disposition Time: 02:30 Condition: STABLE Prescriptions: Ciprofloxacin [Cipro] 500 mg PO BID #6 tab Ibuprofen [Motrin] 600 mg PO Q6 #20 tab Metronidazole [Flagyl] 500 mg PO BID #14 tab Instructions: [facility] (ED) Forms: [employer] (Turkmen) Print Language: QATARI - POA Present On Arrival: None
[2017-10-08 21:56] LABS: BASO % 0.3 % (0.0-2.0); EOS # 0.1 K/uL (0.0-0.7); EOS % 0.6 % (0.0-4.0); HEMATOCRIT 38.4 % (34.0-47.0); LYMPH # 1.4 K/uL (1.0-4.3); LYMPH % 12.8 % (20.0-40.0); MEAN CELL VOLUME 82.7 fl (81.0-99.0); MEAN CORPUSCULAR HEMOGLOBIN 27.6 pg (27.0-31.0); MEAN CORPUSCULAR HGB CONC 33.3 g/dL (33.0-37.0); MEAN PLATELET VOLUME 9.8 fl (7.2-11.7); MONO # 0.8 K/uL (0.0-0.8); MONO % 6.9 % (0.0-10.0); NEUT # 8.8 K/uL (1.8-7.0); NEUT % 79.4 % (50.0-75.0); NRBC % 0.1 % (0.0-0.0); RED CELL DISTRIBUTION WIDTH 15.6 % (11.5-14.5)
[2017-10-08 22:11] LABS: ALB/GLOB RATIO 1.2 (1.0-2.1); ALKALINE PHOSPHATASE 133 U/L (38-126); ALT/SGPT 45 U/L (9-52); AST/SGOT 45 U/L (14-36); BILIRUBIN,TOTAL 0.3 mg/dl (0.2-1.3); BLOOD UREA NITROGEN 13 mg/dl (7-17); CALCIUM 8.9 mg/dL (8.4-10.2); CARBON DIOXIDE 24 mmol/L (22-30); CHLORIDE 101 mmol/L (98-107); GFR AFRICAN-AMERICAN > 60; GLUCOSE,RANDOM 270 mg/dL (65-105); POTASSIUM 4.1 MMOL/L (3.6-5.0); SODIUM 139 mmol/l (132-148); TOTAL PROTEIN 7.8 G/DL (6.3-8.2)
--- NOTE | 2017-10-08 22:56 | US ---
EXAM: US Pelvis, Transvaginal CLINICAL HISTORY: 37 years old, female; Pain; Pelvic pain; Additional info: Assess iud location TECHNIQUE: Real-time transvaginal pelvic ultrasound (complete) with image documentation. Transvaginal imaging was used for better evaluation of the endometrium and adnexa. COMPARISON: No relevant prior studies available. FINDINGS: Uterus/cervix: Unremarkable measuring 8.9 x 5.3 x 4.0 cm. The endometrial stripe thickness measures 7 mm. There is an oval echogenic focus within the endometrial cavity measuring 8 x 9 x 5 mm. Diagnostic considerations include endometrial polyp. No myometrial mass. Right ovary: Unremarkable measuring 3.6 x 2.1 x 3.7 cm. No mass. Normal blood flow. Left ovary: Unremarkable measuring 2.9 x 2.9 x 1.9 cm. No mass. Normal blood flow. Free fluid: A Trace pelvic cul-de-sac free fluid is identified. Bladder: Empty bladder which cannot be evaluated with this probe. An intrauterine device is present. IMPRESSION: No acute pelvic abnormality. No evidence of ovarian torsion. Incidental endometrial cavity echogenic focus. Diagnostic considerations include endometrial polyp. Clinical correlation and followup recommended. Further evaluation with hysterosonography may be considered.
[2017-10-08] MEDS ORDERED: Iohexol 240 (50 ml) PO ONE (23:18)
[2017-10-09] MEDS ORDERED: Iohexol 300 100 ML IJ ONE (01:18)
--- NOTE | 2017-10-09 02:10 | CT ---
EXAM: CT Abdomen and Pelvis With Intravenous Contrast CLINICAL HISTORY: 37 years old, female; Pain; Abdominal pain; Periumbilical; Prior surgery; Surgery date: 6+ months; Surgery type: Appendectomy. ; Additional info: Umbilical abdominal pain TECHNIQUE: Axial computed tomography images of the abdomen and pelvis with intravenous contrast. All CT scans at this facility use one or more dose reduction techniques, viz.: automated exposure control; ma/kV adjustment per patient size (including targeted exams where dose is matched to indication; i.e. head); or iterative reconstruction technique. Coronal and sagittal reformatted images were created and reviewed. CONTRAST: 90 mL of [id number] administered intravenously. COMPARISON: CT - ABD PELVIS PO IV CONTRAST 2017-03-10 02:16 FINDINGS: Lower thorax: There is minimal bibasilar atelectasis. ABDOMEN: Liver: Unremarkable. No mass. Gallbladder and bile ducts: Unremarkable. No calcified stones. No ductal dilation. Pancreas: Unremarkable. No mass. No ductal dilation. Spleen: Unremarkable. No splenomegaly. Adrenals: Unremarkable. No mass. Kidneys and ureters: Unremarkable. No solid mass. No hydronephrosis. Stomach and bowel: No obstruction.There is no wall thickening or pericolonic stranding to suggest colitis. Appendix: There has been an appendectomy. PELVIS: Bladder: Unremarkable. No mass. Reproductive: 1.8 cm cyst in the right ovary with rim enhancement, possible involuting cyst. IUD is noted. ABDOMEN and PELVIS: There is stranding of the mesenteric fat in the right lower abdomen and pelvis suggesting an infectious/inflammatory process. The adjacent small bowel loops are somewhat thickwalled. Intraperitoneal space: No free air. No significant fluid collection. Bones/joints: No acute fracture. No dislocation. Soft tissues: There is a fat-containing umbilical hernia. Vasculature: Unremarkable. No abdominal aortic aneurysm. Lymph nodes: Unremarkable. No enlarged lymph nodes. IMPRESSION: Appendectomy. Inflammatory stranding of the mesenteric fat in the right lower abdomen and pelvis with somewhat thickwalled adjacent small bowel loops. Findings suggest an infectious/inflammatory process. Acute enteritis is not excluded. Clinical correlation and followup recommended. Possible involuting cyst in the right ovary. Further evaluation with pelvic ultrasound could be obtained if clinically indicated.
[2017-10-09 03:01] VITALS: BP 122/78; PULSE 82; TEMP 98.6
== END 2017-10-09 03:01 | disposition home or self-care (01) ==
LOC: H.ER 21:00
DX: N83.209 Unspecified ovarian cyst, unspecified side (principal); K52.9 Noninfective gastroenteritis and colitis, unspecified; E11.9 Type 2 diabetes mellitus without complications; Z79.84 Long term (current) use of oral hypoglycemic drugs; Z90.49 Acquired absence of other specified parts of digestive tract; Z98.890 Other specified postprocedural states; J45.909 Unspecified asthma, uncomplicated
CPT/HCPCS: 74177; 76830; 80053; 81025; 82948; 85025; 85610; 85730; 96374; 99283; J1885; J2270; Q9966; Q9967

== ENCOUNTER 2018-06-07 08:59 | Emergency (ER) | payer SELFPAY ==
[2018-06-07 08:59] VITALS: BMI 22.6
[2018-06-07 09:18] VITALS: PULSE 80; RESP 18; TEMP 98.4
--- NOTE | 2018-06-07 09:48 | ED PDOC ---
HPI: Skin/Bite Injury Time Seen by Provider: 06/07/18 09:08 Chief Complaint (Nursing): Wound Check Chief Complaint (Provider): Wound Check History Per: Patient History/Exam Limitations: no limitations Onset/Duration Of Symptoms: Days Current Symptoms Are (Timing): Still Present Additional Complaint(s): 38 y/o female with a PMHx of DM presents to the ED complaining of a bump to her site. Patient reports of having a 14 yrs ago. However, bump recently appeared and is now drained. PMD: None Provided Past Medical History Reviewed: Historical Data, Nursing Documentation, Vital Signs Vital Signs: Last Vital Signs Temp 98.4 F 06/07/18 09:14 Pulse 80 06/07/18 09:14 Resp 18 06/07/18 09:14 BP Pulse Ox 100 06/07/18 09:52 - Medical History PMH: Asthma, Diabetes (NIDDM) Denies: HIV, Chronic Kidney Disease - Surgical History Surgical History: Appendectomy - Family History Family History: States: Unknown Family Hx, Diabetes - Immunization History Hx Influenza Vaccination: No - Home Medications Home Medications: Ambulatory Orders Medication Instructions Recorded Ibuprofen [Motrin] 600 mg PO Q6 #20 tab 10/08/17 MetFORMIN [glucoPHAGE] 800 mg PO BID 10/08/17 Ciprofloxacin [Cipro] 500 mg PO BID #6 tab 10/09/17 Metronidazole [Flagyl] 500 mg PO BID #14 tab 10/09/17 Bacitracin OINT 1 applic TOP BID PRN #1 tube 06/07/18 - Allergies Allergies/Adverse Reactions: Allergies Allergy/AdvReac Type Severity Reaction Status Date / Time No Known Allergies Allergy Verified 10/08/17 21:04 Review of Systems ROS Statement: Except As Marked, All Systems Reviewed And Found Negative Skin: Positive for: Other (Bump to the site) Physical Exam - Reviewed Nursing Documentation Reviewed: Yes Vital Signs Reviewed: Yes - Physical Exam Appears: Positive for: Non-toxic, No Acute Distress Head Exam: Positive for: ATRAUMATIC, NORMOCEPHALIC Skin: Positive for: Normal Color (3 mm area of hyperpigmentation on the left lower site. Otherwise normal color; No erythema, edema, induration or fluctance.), Warm, Dry Eye Exam: Positive for: Normal appearance, EOMI, PERRL Neck: Positive for: Normal, Painless ROM Cardiovascular/Chest: Positive for: Regular Rate, Rhythm. Negative for: Murmur Respiratory: Positive for: Normal Breath Sounds. Negative for: Respiratory Distress Gastrointestinal/Abdominal: Positive for: Normal Exam, Soft. Negative for: Tenderness Back: Positive for: Normal Inspection. Negative for: L CVA Tenderness, R CVA Tenderness, Vertebral Tenderness Extremity: Positive for: Normal ROM. Negative for: Deformity Neurologic/Psych: Positive for: Alert, Oriented. Negative for: Motor/Sensory Deficits - ECG O2 Sat by Pulse Oximetry: 100 (RA) Pulse Ox Interpretation: Normal Medical Decision Making Medical Decision Making: Time: 925 Plan: -- Glucose, Blood, POC Scribe Attestation: Documented by Rufus Chacon acting as a scribe for Dr. Nicky Maynard MD. Provider Scribe Attestation: All medical record entries made by the Scribe were at my direction and personally dictated by me. I have reviewed the chart and agree that the record accurately reflects my personal performance of the history, physical exam, medical decision making, and the department course for this patient. I have also personally directed, reviewed, and agree with the discharge instructions and disposition. Disposition - Clinical Impression Clinical Impression: Skin irritation - Disposition Referrals: [facility] [Outside] Disposition: Routine/Home Disposition Time: 10:10 Condition: STABLE Additional Instructions: TAKE TYLENOL OR MOTRIN NEEDED FOR PAIN. Prescriptions: Bacitracin OINT 1 applic TOP BID PRN #1 tube PRN Reason: Rash Instructions: Skin Rash Forms: [facility] (Nepalese) Print Language: MOZAMBICAN
[2018-06-07 10:37] VITALS: O2SAT 99
== END 2018-06-07 10:37 | disposition home or self-care (01) ==
LOC: H.ER 08:59
DX: L98.9 Disorder of the skin and subcutaneous tissue, unspecified (principal); E11.9 Type 2 diabetes mellitus without complications; Z79.84 Long term (current) use of oral hypoglycemic drugs